=== PATIENT | male | born 1955 | race Asian ===

== ENCOUNTER → 2016-10-22 | Outpatient (CLI) | payer MEDICARE, MEDICAID ==
[~2016-10-22] MED LIST: ALBU8.5H3 IH; AMIN30LI28 PO; AMLO-512 PO; AMYL1CAP61 PO; ASPI-556 PO; ATOR10TA84 PO; CARV25 PO; CITA10TA68 PO; CLON.1 PO; DOCU250C91 PO; FAMO20 PO; HYDR-2924 PO; IPRAHFA IH; LEVO250T2 PO; LEVO75 PO; PANT40TA25 PO; SEVEC800 PO; SUCR500T GT; SUCR500T PO; TAMS-1 PO
[2016-10-22 11:19] VITALS: BP 130/53
== END | disposition home or self-care (01) ==
LOC: SRCNTR 11:01
PROVIDERS: ATTEND Internal Medicine Critical Care Medicine
DX: I12.0 Hypertensive chronic kidney disease with stage 5 chronic kidney disease or end stage renal disease (principal); N18.6 End stage renal disease; G47.33 Obstructive sleep apnea (adult) (pediatric); E03.9 Hypothyroidism, unspecified; I63.49 Cerebral infarction due to embolism of other cerebral artery; I71.2 Thoracic aortic aneurysm, without rupture; J96.90 Respiratory failure, unspecified, unspecified whether with hypoxia or hypercapnia
CPT/HCPCS: G0463